=== PATIENT | male | born 1980 | race Caucasian/White ===

== ENCOUNTER 2020-03-16 09:01 | Emergency (ER) | payer SELFPAY ==
[2020-03-16 09:09] VITALS: BP 131/78; PULSE 82; RESP 14; TEMP 37.4; O2SAT 99
--- NOTE | 2020-03-16 09:09 | ED.SKABFB ---
HPI - Skin/Abscess/Foreign Bdy General Chief complaint: Skin/Abscess/Foreign Body Stated complaint: bump on back of neck Time Seen by Provider: 03/16/20 09:12 Source: patient and RN notes reviewed History of Present Illness HPI narrative: Patient is a 40-year-old male who presents the urgent care with complaints of a bump on the back of his neck. Patient states he noticed on and is gotten larger and more tender. Patient denies any use of [id number] medication to the area. Denies of any known insect bite. Denies of any fever, chills, nausea, vomiting. No other acute complaints. No acute distress noted. Patient aware the plan of care. Related Data Allergies Allergy/AdvReac Type Severity Reaction Status Date / Time No Known Allergies Allergy Mild Verified 03/16/20 09:20 Review of Systems Review of Systems: Narrative: CONSTITUTIONAL: Denies fever, chills, or sweats. EYES: Denies visual changes, redness, or discharge. ENT: Denies rhinorrhea, congestion, sore throat, or otalgia. CARDIOVASCULAR: Denies chest pain, palpitations, or edema. RESPIRATORY: Denies cough or dyspnea. GASTROINTESTINAL: Denies abdominal pain, nausea, vomiting, or diarrhea. GENITOURINARY: Denies dysuria or hematuria. SKIN: Reports of a bump to the back of the neck MUSCULOSKELETAL: Denies back pain, joint pain, or myalgia. NEUROLOGIC: Denies headache, numbness, or weakness. All other systems reviewed are negative, except as documented in HPI. PMFSH Comments At the time of my signature, I reviewed and agree with the nursing past medical, surgical, social, and family history. There is no relevant family history pertinent to the patient complaint. Exam Narrative: Exam Narrative: GENERAL: This is a well-nourished, well-developed patient, in no apparent distress. HEAD: normocephalic, atraumatic. EYES: PERRL. Sclera clear/white. Vision is grossly intact. EARS: External ears normal NOSE: External nose normal with no obvious nasal discharge, nares without redness, no rhinorrhea. THROAT: Mucous membranes moist NECK: Neck supple SKIN: 1 cm raised folliculitis to the back of the neck with 2cm surrounding redness NEURO: awake, alert, and oriented to person, place and time. There were no obvious focal neurologic abnormalities. EXTREMITIES: No clubbing, cyanosis, or edema. Course Vital Signs Vital signs: Vital Signs Temperature 99.4 F 03/16/20 09:09 Pulse Rate 82 03/16/20 09:09 Respiratory Rate 14 03/16/20 09:09 Blood Pressure 131/78 03/16/20 09:09 Pulse Oximetry 99 03/16/20 09:09 Temperature 99.4 F 03/16/20 09:09 Pulse Rate 82 03/16/20 09:09 Respiratory Rate 14 03/16/20 09:09 Blood Pressure 131/78 03/16/20 09:09 Pulse Oximetry 99 03/16/20 09:09 Reviewed MDM - Skin/Abscess/Foreign Bdy MDM Narrative Medical decision making narrative: Advised the patient to use a warm compress to the area. Do not try to pop or pick on the area. Typically, folliculitis, will resolve on its own without any oral antibiotic treatment. However, if the area becomes more tender, increased redness, or is not improving in the next 48 hours?start antibiotic regimen as prescribed and complete the medication. Make sure to eat and drink with the medication. If the area opens and drains, make sure to keep it very clean with plain Dial soap and water. Follow-up with your PCP within 2 to 5 days or for worsening symptoms or failure to improve. Differential Diagnosis Differential diagnosis: Likely abscess of skin or subcutaneous tissue, urticaria, cellulitis, insect bites and contact dermatitis Critical Care Time Critical Care Time Critical Care Time: No Discharge Plan Discharge Clinical Impression: Folliculitis Patient Disposition: Home, Self-Care Condition: Stable Instructions: Antibiotic Form, Folliculitis (ED) Additional Instructions: Advised the patient to use a warm compress to the area. Do not try to pop or pick on the ar
== END 2020-03-16 09:30 | disposition home or self-care (01) ==
PROVIDERS: Emergency Provider Nurse Practitioner Family
DX: L73.9 Follicular disorder, unspecified (principal)
CPT/HCPCS: 99213; G0463